=== PATIENT | female | born 1980 ===

== ENCOUNTER 2018-04-19 14:41 | Inpatient (IN) | payer OTHER ==
[~2018-04-19] VITALS: Ht 162.6 cm; Wt 5.0 kg
[~2018-04-19 14:41] MED LIST: CODE1TAB37 PO; PEPCID AC10 MG PO; PRENATAL CAPSU1 EACH PO; SINGULAIR10 MG PO; ZYRTEC10 MG PO
[2018-04-23] MEDS ORDERED: CODE1TAB37 PO (12:10)
[2018-04-23] MEDS ORDERED: NAPR500T14 PO (12:11)
== END 2018-04-23 15:11 | disposition home or self-care (01) | DRG 785 ==
LOC: LDR 14:41 → OB/GYN 04-20 15:14
PROVIDERS: Obstetrics & Gynecology
PROC: 0UL70ZZ Occlusion of Bilateral Fallopian Tubes, Open Approach (ICD-10-PCS; 2018-04-20)
PROC: 4A1HXCZ Monitoring of Products of Conception, Cardiac Rate, External Approach (ICD-10-PCS; 2018-04-20)
PROC: 10D00Z1 Extraction of Products of Conception, Low, Open Approach (ICD-10-PCS; principal; 2018-04-20 15:45)
DX: O60.14X0 Preterm labor third trimester with preterm delivery third trimester, not applicable or unspecified (principal); O14.14 Severe pre-eclampsia complicating childbirth; Z3A.36 36 weeks gestation of pregnancy; Z37.0 Single live birth; Z30.2 Encounter for sterilization